=== PATIENT | male | born 1950 | race Caucasian/White ===

== ENCOUNTER → 2020-09-03 14:48 | Outpatient (BNVA) | payer MEDICARE, MEDICAID, SELFPAY | PROVIDERS: Family Provider Family Medicine; Visit Provider Dermatology | DX: D48.9 Neoplasm of uncertain behavior, unspecified (principal) | CPT/HCPCS: 88304 ==

== ENCOUNTER 2021-07-08 08:59 | Emergency (ER) | payer MEDICARE, OTHER, MEDICAID, SELFPAY ==
[2021-07-08 09:06] VITALS: BP 172/84; PULSE 67; RESP 18; TEMP 36.6; O2SAT 95; BMI 26.6
--- NOTE | 2021-07-08 09:11 | XRR_ITS ---
PROCEDURE INFORMATION: Exam: XR Left Tibia and Fibula Exam date and time: 07/08/2021 9:11 AM Age: 71 years old Clinical indication: Injury or trauma; Laceration; Lower leg; Left; Foreign body involvement not specified; Injury details: Knicked feliciano with a chainsaw TECHNIQUE: Imaging protocol: XR Left tibia and fibula. Views: 2 views. Total images: 2 COMPARISON: No relevant prior studies available. FINDINGS: Bones/joints: Small cortical fracture along the anterior cortex of the distal metadiaphyseal area of the left tibia. No additional fracture, subluxation, or dislocation detected. Soft tissues: Small soft tissue laceration anterior inferior feliciano. XR/XR tibia fibula LT 2V [id number] IMPRESSION: 1. Small soft tissue laceration anterior inferior feliciano. 2. Small cortical fracture along the anterior cortex of the distal metadiaphyseal area of the left tibia.
--- NOTE | 2021-07-08 09:18 | PC.PHAR ---
pt states he takes care of his own medications-pt verified medications and states he took his am meds at 05:30
--- NOTE | 2021-07-08 09:27 | W.ED.WOUNDLC ---
Documented by User: Ayo Resendiz DO 07/08/21 11:57 HPI - Wound/Laceration General: Chief Complaint: Wound/Laceration Stated Complaint: cut on leg Time Seen by Provider: 07/08/21 09:02 History of Present Illness: HPI narrative: 71-year-old male presents emergency room after cutting himself with a chainsaw. Left distal anterior tibia was cut with a chainsaw through boot. No active bleeding is not sure of his last tetanus shot. He was able to walk he has difficulty with dorsiflexion of the foot. Onset (ago): minute(s) Extremity Location: Left: lower leg Place: home Patient tetanus UTD: No Context: accidental Associated symptoms: Reports inability to move; Denies chills, fever(s), foreign body sensation, nausea, numbness, pain, syncope or vomiting Treatments prior to arrival: bandage Review of Systems Const: Denies: fever(s) or chills ENMT: Denies: throat pain, ear or mastoid pain, nasal discharge or nasal congestion Card: Denies: syncope Resp: Denies: dyspnea, productive cough or non-productive cough GI: Denies: nausea or vomiting : Denies: flank pain, dysuria, urinary frequency or urinary urgency Skin/Breast: Denies: rash or pruritus PFSH ED PFSH: Medical History History of nonmelanoma skin cancer Hyperlipidemia Hypertension Surgical History History of appendectomy History of back surgery Social History Smoking and tobacco status: current every day smoker cigarettes Packs smoked per day: 1 Years cigarettes smoked: 60 Quit status (tobacco): not considering quitting Second hand smoke exposure: Yes Smoking risk assessment/counseling performed?: No Alcohol intake: current Alcohol intake frequency: holidays/special occasions only Desire information about alcohol rehabilitation?: No Counseling given: No Physical Exam Const: COMMON NORMALS: no acute distress GENERAL APPEARANCE: cooperative and comfortable ORIENTATION/CONSCIOUSNESS: Yes awake, Yes oriented to person, Yes oriented to place and Yes oriented to time HENMT: COMMON NORMALS: normocephalic, atraumatic, hearing grossly normal bilaterally, external ears normal, EAC's normal, TM's normal bilaterally, Normal nasal mucous membranes and turbinates present, moist oral mucous membranes and oropharynx normal HEAD & SCALP: normocephalic and atraumatic NOSE: Normal nasal mucous membranes and turbinates present EXTERNAL EAR: Yes external ears normal EXTERNAL AUDITORY CANAL: EAC's normal TYMPANIC MEMBRANE: TM's normal bilaterally Eye: COMMON NORMALS: Equal, round and reactive pupils present, EOMs intact bilaterally, conjunctivae normal and no scleral icterus CONJUNCTIVA: Yes conjunctivae normal PUPIL: Yes Equal, round and reactive pupils present Neck/C-Spine: COMMON NORMALS: full ROM, no lymphadenopathy, supple and no JVD Lymph: LYMPHATIC: no lymphadenopathy noted and no lymphedema noted Resp: COMMON NORMALS: normal respiratory effort, No retractions, No use of accessory muscles and clear to auscultation bilaterally AUSCULTATION: clear to auscultation bilaterally Cardio: COMMON NORMALS: no JVD, regular rate, regular rhythm and No murmurs present (Cardio) RATE: regular rate RHYTHM: regular rhythm GI: COMMON NORMALS: Soft to palpation and No hepatosplenomegaly present AUSCULTATION: Yes normoactive bowel sounds PALPATION: Yes Soft to palpation, No Tenderness to palpation present (GI), No Guarding due to palpation present (GI) and Yes No hepatosplenomegaly present Extremity: COMMON NORMALS: normal to inspection, capillary refill normal, no clubbing, cyanosis or edema, no calf tenderness and no pedal edema Neuro: SENSORIUM/ORIENTATION: Yes oriented to person, Yes oriented to place and Yes oriented to time Skin: NARRATIVE SKIN EXAM: Full-thickness laceration on the anterior tibia distally. Tendons identifiable appears of the anterior tibialis and extensor hallux are lacerated Course Vital Signs: Vital signs: Vital Signs Temperature 97.8 F 07/08/21 09:06 Pulse Rate 63 07/08/21 11:32 Respiratory Rate 16 07/08/21 11:32 Blood Pressure 138/73 07/08/21 11:32 Pulse Oximetry 98 07/08/21 11:32 MDM - Wound/Laceration MDM Narrative: Medical decision making narrative: Discussed with Dr. Morel. Will discharge home screen for Covid set him up to see Dr. Morel tomorrow start on antibiotics he is given Ancef here and his tetanus is updated discharge home with pain medicine he is in a cam walker nonweightbearing with crutches. Discharge Plan Discharge Patient Disposition: Home Clinical Impression: Laceration, Laceration of right extensor hallucis longus tendon, Laceration of tibialis anterior tendon, Open tibial fracture Condition: Stable Prescriptions: New hydrocodone-acetaminophen 5-325 mg tablet 1 tab PO Q6H PRN (Reason: pain) Qty: 25 RF: 0 clindamycin HCl 300 mg capsule 300 mg PO QID 7 Days Qty: 28 RF: 0 No Action amlodipine 10 mg tablet 10 mg PO QAM RF: 0 lisinopril 10 mg tablet 10 mg PO BEDTIME RF: 0 lovastatin 10 mg tablet 10 mg PO BEDTIME RF: 0 escitalopram oxalate 10 mg tablet 10 mg PO QAM RF: 0 aspirin [Adult Aspirin Regimen] 81 mg tablet,delayed release (DR/EC) 81 mg PO QAM RF: 0 Discharge Orders: Discharge ED (Routine); Ordered 07/08/21 Ordered By: Ayo Resendiz Referrals: Quinten Hidalgo NP [Primary Care Provider] - Patient Instructions: Opioid Safety Activity Restrictions/Additional Instructions: Follow-up with orthopedics tomorrow Coding Level of Care Code ED Certified Driver Examiner for Chg Fwd Documented by User: SHAYLA Esquivel 07/08/21 10:50 HPI - Wound/Laceration General: Chief Complaint: Wound/Laceration Stated Complaint: cut on leg Time Seen by Provider: 07/08/21 09:02 [facility] ED PFSH: Medical History History of nonmelanoma skin cancer Hyperlipidemia Hypertension Surgical History History of appendectomy History of back surgery Social History Smoking and tobacco status: current every day smoker cigarettes Packs smoked per day: 1 Years cigarettes smoked: 60 Quit status (tobacco): not considering quitting Second hand smoke exposure: Yes Smoking risk assessment/counseling performed?: No Alcohol intake: current Alcohol intake frequency: holidays/special occasions only Desire information about alcohol rehabilitation?: No Counseling given: No Procedures Laceration Laceration 1: Site: lower extremity Side (If applicable): left Size (cm): 4.0 Description: irregular and other (tissue loss) Depth: involves tendon Local Anesthetic: lidocaine 1% Amount of anesthesia used (mL): 3.0 Pre-repair: wound explored and irrigated extensively Skin layer closed with: nylon Size (cm): 4-0 Number of sutures: 7 Technique: simple, interrupted Course Vital Signs: Vital signs: Vital Signs Temperature 97.8 F 07/08/21 09:06 Pulse Rate 63 07/08/21 11:32 Respiratory Rate 16 07/08/21 11:32 Blood Pressure 138/73 07/08/21 11:32 Pulse Oximetry 98 07/08/21 11:32 MDM - Wound/Laceration MDM Narrative: Medical decision making narrative: I was consulted by Dr. Resendiz to repair patient's left lower extremity laceration. This was completed as documented. Visual inspection of the wound appears to have complete lacerations of anterior tibialis and extensor hallucis tendons as well as bony tibial involvement. Copious amounts of irrigation completed by myself prior to laceration repair. Other than repair, I did not actively participate in patient's care. ES Discharge Plan Discharge Patient Disposition: Home Clinical Impression: Laceration, Laceration of right extensor hallucis longus tendon, Laceration of tibialis anterior tendon, Open tibial fracture Condition: Stable Prescriptions: New hydrocodone-acetaminophen 5-325 mg tablet 1 tab PO Q6H PRN (Reason: pain) Qty: 25 RF: 0 clindamycin HCl 300 mg capsule 300 mg PO QID 7 Days Qty: 28 RF: 0 No Action amlodipine 10 mg tablet 10 mg PO QAM RF: 0 lisinopril 10 mg tablet 10 mg PO BEDTIME RF: 0 lovastatin 10 mg tablet 10 mg PO BEDTIME RF: 0 escitalopram oxalate 10 mg tablet 10 mg PO QAM RF: 0 aspirin [Adult Aspirin Regimen] 81 mg tablet,delayed release (DR/EC) 81 mg PO QAM RF: 0 Discharge Orders: Discharge ED (Routine); Ordered 07/08/21 Ordered By: Ayo Resendiz Referrals: Quinten Hidalgo NP [Primary Care Provider] - Patient Instructions: Opioid Safety Activity Restrictions/Additional Instructions: Follow-up with orthopedics tomorrow Coding Level of Care Code ED Certified Driver Examiner for Shereen Nassar
[2021-07-08 09:39] VITALS: RESP 15
[2021-07-08] MEDS: ceFAZolin 1,000 MG in sodium chloride 0.9% (plus) 50 ML 100 MG IV (09:59)
[2021-07-08] MEDS: tetanus-dipt-pertussis 0.5 mL SDV IM (09:59)
[2021-07-08 11:32] VITALS: BP 138/73; PULSE 63; RESP 16; O2SAT 98
--- NOTE | 2021-07-08 11:35 | PC.NURSE ---
Dressing applied to left lower extrem, patient tolerates procedure without complaint.
[2021-07-08 12:08] VITALS: BP 143/75; PULSE 88; RESP 15; O2SAT 98
--- NOTE | 2021-07-08 12:13 | DCPLANNER ---
restaurant district manager had message to schedule a follow up appointment for patient with ortho. restaurant district manager called the ortho clinic, spoke with Gina, gave clinic patients information. restaurant district manager was told that patients information would be printed and reviewed. Clinic will call patient with appointment information.
[2021-07-08 12:18] VITALS: BP 143/75; PULSE 88; RESP 15; O2SAT 98
--- NOTE | 2021-07-09 14:09 | DCPLANNER ---
Patient has a follow up appointment scheduled for Thursday, June at 10:[address] Morel. Clinic will call patient with appointment information.
[2021-07-09 16:57] LABS: Coronavirus Test Green County Not Detected
--- NOTE | 2021-07-11 11:46 | DCPLANNER ---
Patient had a follow up appointment scheduled for 07.10.21 with ortho - patient did attend the appointment.
== END 2021-07-08 12:20 | disposition home or self-care (01) ==
PROVIDERS: Emergency Provider Family Medicine; PCP Nurse Practitioner Family
DX: S82.202B Unspecified fracture of shaft of left tibia, initial encounter for open fracture type I or II (principal); S86.822A Laceration of other muscle(s) and tendon(s) at lower leg level, left leg, initial encounter; S86.222A Laceration of muscle(s) and tendon(s) of anterior muscle group at lower leg level, left leg, initial encounter; Z79.82 Long term (current) use of aspirin; E78.5 Hyperlipidemia, unspecified; I10 Essential (primary) hypertension; F17.210 Nicotine dependence, cigarettes, uncomplicated; Z23 Encounter for immunization; W29.3XXA Contact with powered garden and outdoor hand tools and machinery, initial encounter; Z20.822 Contact with and (suspected) exposure to COVID-19
CPT/HCPCS: 12002; 73590; 87635; 90471; 90715; 96365; 97760; 99284; J0690; L4361

== ENCOUNTER 2021-07-15 10:45 | Day surgery (SDC) | payer MEDICARE, OTHER, MEDICAID, SELFPAY ==
[2021-07-12 11:17] VITALS: BMI 27.3
[2021-07-15] VITALS (10 sets, daily range): BP systolic 157–183; BP diastolic 76–109; PULSE 70–79; RESP 14–18; TEMP 36.2–36.8; O2SAT 96–100
[2021-07-15] MEDS: sodium chloride 0.9% 1,000 ML 30 ML IV (11:36)
--- NOTE | 2021-07-15 12:41 | ANES.PREANE2 ---
Pre-Anesthetic Assessment Pre-Anesthetic Assessment: Height/Weight: Height 1.75 m Weight 83.915 kg Temp Pulse Resp BP Pulse Ox 97.2 F L 70 18 157/76 98 07/15/21 11:37 07/15/21 11:37 07/15/21 11:37 07/15/21 11:37 07/15/21 11:37 Preop Diagnosis: Complex laceration left leg Proposed Procedure: Operation Date: 07/15/21 12:35 Proposed Procedures p exploration left leg wound, hallus longus tendon repair 53263, anterior tibialis tendon repair 50387 S86.229A S96.121A(Left) - Dev Morel MD s Tendon Repair Patella(Left) - Dev Morel MD Was Beta Krystin taken within 24 hours: N/A Was Clonidine taken within 24 hours: N/A Last intake: Intake Last Liquid Date 07/14/21 Last Liquid Time 21:00 Last Solid Date 07/14/21 Last Solid Time 21:00 Social: Social History: No alcohol and No tobacco Exam: Pre-Anes Outpt Exam: alert, oriented x 3 and regular rate & rhythm Airway: Submandibular: WNL Cervical ROM: WNL MP: 2 Dentition: Chipped Additional comments: poor dentition Pulmonary: Pulmonary: COPD CV/HEM: CV/HEM: HTN Metabolic: Metabolic: Hyperlipidemia Anesthetic Plan: ASA status: 3 Anesthesia: General Risk of > 500 ml blood loss (7ml/kg in children): No Meds/Allergies Current Medications: Current Medications Generic Name Dose Route Start Last Admin Trade Name Freq PRN Reason Stop Dose Admin Sodium Chloride 1,000 mls @ 30 ml s/hr 07/15/21 11:15 07/15/21 11:36 Sodium Chloride 0.9% IV 07/16/21 11:14 30 mls/hr .Q24H JUAN Administration PFSH Anesthesia PFSH: Medical History History of nonmelanoma skin cancer Hyperlipidemia Hypertension Surgical History History of appendectomy History of back surgery Social History Quit status (tobacco): not considering quitting Second hand smoke exposure: Yes Smoking risk assessment/counseling performed?: No Alcohol intake: current Alcohol intake frequency: holidays/special occasions only Desire information about alcohol rehabilitation?: No Counseling given: No Data Anesthesia Cardiac Studies: No Data to Display
--- NOTE | 2021-07-15 12:56 | W.PM.OPSUD ---
Surgery/Procedure H&P Update DATE OF PROCEDURE: July 15, 2021 DATE H&P PERFORMED: 07/10/21 PREOP DIAGNOSIS: Complex laceration left leg PLANNED PROCEDURE: Operation Date: 07/15/21 12:35 Proposed Procedures p exploration left leg wound, hallus longus tendon repair 60142, anterior tibialis tendon repair 31926 S86.229A S96.121A(Left) - Dev Morel MD s Tendon Repair Patella(Left) - Dev Morel MD
[2021-07-15] MEDS: clindamycin 900 MG/50 ML PREMIX 100 MG IV (13:28)
--- NOTE | 2021-07-15 14:35 | P.OP_ITS ---
Operative Report Date of procedure: July 15, 2021 Pre-op Diagnosis: Complex laceration left leg Post-op diagnosis: same Post-op Findings: Laceration left leg with complete transection tibialis anterior tendon Implants: Repair left tibialis anterior tendon and wound closure Pathology: none sent Surgeon: Dev Morel Anesthesia: General Estimated blood loss (mL): 10 Tourniquet time (min): 24 Complications: None Findings: The patient had a transverse laceration approximately 4 cm above the level of the ankle with complete disruption of the tibialis anterior tendon. The extensor houses longus tendon was intact Condition: stable Disposition: PACU Brief History: Mr. Huertas sustained a laceration to his left anterior distal leg with a chainsaw. The emergency room noted transection of the tibialis anterior tendon and inability to dorsiflex the foot. The wound was closed with a decision for exploration once a soft tissue envelope stabilized Procedure: The patient was taken the operating room and given 900 mg of clindamycin. He is positioned in the supine position with a tourniquet on the left thigh. The tourniquet was inflated to 350 mmHg. Initially sutures were removed from the 4 cm long transverse incision. The decision was extended proximally from the lateral aspect of the incision and distally from the medial aspect of the incision approximately 3 cm in each direction. This brought us down to the tibialis anterior tendon and the torn stump was identified distally. Damage to the proximal tibialis anterior tendon was extensive with muscular damage over a distance of approximately 2 cm however some reasonable tended could be found medially and deep. Decision was made to incorporate the intact extensor houses longus tendon and the repair to provide better tissue to aid healing. A Ultrabraid suture was passed in a locking Krak?w fashion across the distal tendon stump. A second suture was passed across the remaining proximal tendon incorporating the extensor houses longus tendon into the repair. The Ultratape tendons were secured to each other drawing the distal tendon stump up to the remnants of the remaining tendon and extensor houses longus tendon. The repair was then reinforced with 0 Ethibond. The wound was irrigated with antibiotic solution. The apices of the see incision were closed with 1 Prolene and the remainder the incision closed with vertical suture of 3-0 Prolene. Xero sheila gauze, 4 x 4's, web roll and Michael wrap and a postop boot were applied. The patient was extubated and taken recovery room in stable condition
[2021-07-15] MEDS: fentaNYL 50 mcg/mL INJ 2mL IVP ×2 (14:41→14:46)
--- NOTE | 2021-07-15 15:38 | ANE.PACU2 ---
Inpatient post-anesthesia follow up: Airway intact: Yes Vital signs: Temperature 97.3 F Pulse Rate 78 Respiratory Rate 18 Blood Pressure 177/92 Pulse Oximetry 98 Oxygen Delivery Me thod Room Air Oxygen Flow Rate Fraction of Inspir ed Oxygen Hydration adequate: Yes Pain level: 4 Mental status: Baseline
== END 2021-07-15 16:04 | disposition home or self-care (01) ==
PROVIDERS: PCP Nurse Practitioner Family; Visit Provider Orthopaedic Surgery
PROC: (CPT 27658; principal; 2021-07-15 12:25)
PROC: (CPT 27380; 2021-07-15 12:25)
DX: S86.822A Laceration of other muscle(s) and tendon(s) at lower leg level, left leg, initial encounter (principal); W29.3XXA Contact with powered garden and outdoor hand tools and machinery, initial encounter; J44.9 Chronic obstructive pulmonary disease, unspecified; I10 Essential (primary) hypertension; E78.5 Hyperlipidemia, unspecified; Z79.82 Long term (current) use of aspirin
CPT/HCPCS: 27658; J1580; J2704; J3010; J3490; J7030

== ENCOUNTER 2021-09-24 09:39 | Outpatient (CLI) | payer MEDICARE, OTHER, MEDICAID, SELFPAY | END 2021-09-24 09:40 | disposition home or self-care (01) | LOC: WOUND 09:40 | PROVIDERS: PCP Nurse Practitioner Family; Visit Provider Thoracic Surgery (Cardiothoracic Vascular Surgery) | DX: L97.821 Non-pressure chronic ulcer of other part of left lower leg limited to breakdown of skin (principal); F17.210 Nicotine dependence, cigarettes, uncomplicated | CPT/HCPCS: 11042; G0463 ==

== ENCOUNTER 2021-10-01 09:31 | Outpatient (CLI) | payer MEDICARE, OTHER, MEDICAID, SELFPAY | END 2021-10-01 09:32 | disposition home or self-care (01) | LOC: WOUND 09:32 | PROVIDERS: PCP Nurse Practitioner Family; Visit Provider Nurse Practitioner Family | DX: L97.821 Non-pressure chronic ulcer of other part of left lower leg limited to breakdown of skin (principal); F17.210 Nicotine dependence, cigarettes, uncomplicated | CPT/HCPCS: 11043 ==

== ENCOUNTER 2021-10-08 09:39 | Outpatient (CLI) | payer MEDICARE, OTHER, MEDICAID, SELFPAY | END 2021-10-08 09:40 | disposition home or self-care (01) | LOC: WOUND 09:41 | PROVIDERS: PCP Nurse Practitioner Family; Visit Provider Emergency Medicine | DX: S81.822A Laceration with foreign body, left lower leg, initial encounter (principal); W29.3XXA Contact with powered garden and outdoor hand tools and machinery, initial encounter; F17.210 Nicotine dependence, cigarettes, uncomplicated; I10 Essential (primary) hypertension | CPT/HCPCS: 11042 ==

== ENCOUNTER 2021-10-15 09:42 | Outpatient (CLI) | payer MEDICARE, OTHER, MEDICAID, SELFPAY | END 2021-10-15 09:43 | disposition home or self-care (01) | LOC: WOUND 09:45 | PROVIDERS: PCP Nurse Practitioner Family; Visit Provider Nurse Practitioner Family | DX: S81.822A Laceration with foreign body, left lower leg, initial encounter (principal); W29.3XXA Contact with powered garden and outdoor hand tools and machinery, initial encounter; F17.210 Nicotine dependence, cigarettes, uncomplicated; I10 Essential (primary) hypertension | CPT/HCPCS: 11042 ==

== ENCOUNTER 2021-10-22 08:44 | Outpatient (CLI) | payer MEDICARE, OTHER, MEDICAID, SELFPAY | END 2021-10-22 08:45 | disposition home or self-care (01) | LOC: WOUND 08:45 | PROVIDERS: PCP Nurse Practitioner Family; Visit Provider Nurse Practitioner Family | DX: T81.89XA Other complications of procedures, not elsewhere classified, initial encounter (principal); Y83.8 Other surgical procedures as the cause of abnormal reaction of the patient, or of later complication, without mention of misadventure at the time of the procedure; F17.210 Nicotine dependence, cigarettes, uncomplicated; I10 Essential (primary) hypertension | CPT/HCPCS: 11042 ==

== ENCOUNTER 2021-10-24 13:19 | Outpatient (RCR) | payer MEDICARE, OTHER, MEDICAID, SELFPAY | END 2021-11-22 23:59 | disposition home or self-care (01) | LOC: SPT 13:19 | PROVIDERS: PCP Nurse Practitioner Family; Referring Provider Nurse Practitioner Family; Visit Provider Nurse Practitioner Family | DX: L97.822 Non-pressure chronic ulcer of other part of left lower leg with fat layer exposed (principal) | CPT/HCPCS: 97140; 97161 ==

== ENCOUNTER 2021-10-29 08:06 | Outpatient (CLI) | payer MEDICARE, OTHER, MEDICAID, SELFPAY | END 2021-10-29 08:07 | disposition home or self-care (01) | LOC: WOUND 08:09 | PROVIDERS: PCP Nurse Practitioner Family; Visit Provider Thoracic Surgery (Cardiothoracic Vascular Surgery) | DX: S81.822A Laceration with foreign body, left lower leg, initial encounter (principal); W29.3XXA Contact with powered garden and outdoor hand tools and machinery, initial encounter; F17.210 Nicotine dependence, cigarettes, uncomplicated; I10 Essential (primary) hypertension | CPT/HCPCS: 11042 ==

== ENCOUNTER 2021-11-05 08:06 | Outpatient (CLI) | payer MEDICARE, OTHER, MEDICAID, SELFPAY | END 2021-11-05 08:07 | disposition home or self-care (01) | LOC: WOUND 08:09 | PROVIDERS: PCP Nurse Practitioner Family; Visit Provider Thoracic Surgery (Cardiothoracic Vascular Surgery) | DX: I96 Gangrene, not elsewhere classified (principal); S81.822A Laceration with foreign body, left lower leg, initial encounter; W29.3XXA Contact with powered garden and outdoor hand tools and machinery, initial encounter; F17.210 Nicotine dependence, cigarettes, uncomplicated; I10 Essential (primary) hypertension | CPT/HCPCS: 11043 ==

== ENCOUNTER 2021-11-06 09:01 | Outpatient (CLI) | payer MEDICARE, OTHER, SELFPAY ==
--- NOTE | 2021-11-06 09:12 | USCV_ITS ---
Justice Huertas Age: 71 Gender: M : 1950 Exam Date: 11/06/2021 10:14 Ordering Phys: Oskar Gerardo MD (Andy) ([email or web address]) Technologist: Exam Location: [facility] [place] Indication: PAD ULCER LT FOOT Risk Factors: Smoker Previous Vascular Surgery: RIGHT LEFT BP: 125.0 / 69.00 BP: 123.0/ 69.00 0 0 Waveform Velocity (cm/s) Velocity (cm/s) Waveform Monophasic 84.2 Iliac Prox 83.0 Monophasic Monophasic Iliac Mid Monophasic 101.3 83.6 Monophasic 104.1 Iliac Distal 74.2 Monophasic Monophasic 91.3 CHIP UNLOADER 66.8 Monophasic Monophasic 77.0 SFA Prox 57.4 Monophasic Monophasic 81.3 SFA Mid 72.1 Monophasic Monophasic 69.9 SFA Dist 88.8 Monophasic Monophasic 52.8 POP 24.1 Monophasic Monophasic 11.3 MARINE DRILLER 14.0 Monophasic Monophasic 14.0 DPA 16.0 Monophasic 0.6 DARRIUS 0.8 FINDINGS Normal resting DARRIUS of 0.6 in the right and 0.8 on the left side Monophasic and continuous Doppler waveforms on the right side Monophasic waveforms in the left side CONCLUSIONS Normal resting DARRIUS and Doppler features suggestive of moderate peripheral artery disease in the right side Possible occlusion of the proximal common iliac artery with collateral filling of the iliac, femoral, popliteal and infrapopliteal vessels Abnormal resting DARRIUS of 0.8 on the left side. Minimally diminished resting DARRIUS(0.8) on the left side suggesting mild peripheral artery disease. Dr Jovan Domingo MD [facility] (Electronically Signed) Final Date: 06 November 2021 16:21 S
== END 2021-11-06 09:02 | disposition home or self-care (01) ==
LOC: RAD 09:05
PROVIDERS: PCP Nurse Practitioner Family; Visit Provider Thoracic Surgery (Cardiothoracic Vascular Surgery)
DX: L97.822 Non-pressure chronic ulcer of other part of left lower leg with fat layer exposed (principal); I73.9 Peripheral vascular disease, unspecified
CPT/HCPCS: 93925

== ENCOUNTER 2021-11-12 08:06 | Outpatient (CLI) | payer MEDICARE, OTHER, SELFPAY | END 2021-11-12 08:07 | disposition home or self-care (01) | LOC: WOUND 08:06 | PROVIDERS: PCP Nurse Practitioner Family; Visit Provider Nurse Practitioner Family | DX: S81.822A Laceration with foreign body, left lower leg, initial encounter (principal); W29.3XXA Contact with powered garden and outdoor hand tools and machinery, initial encounter; F17.210 Nicotine dependence, cigarettes, uncomplicated; I10 Essential (primary) hypertension | CPT/HCPCS: 11042 ==

== ENCOUNTER 2021-11-19 07:52 | Outpatient (CLI) | payer MEDICARE, OTHER, SELFPAY | END 2021-11-19 07:53 | disposition home or self-care (01) | LOC: WOUND 07:53 | PROVIDERS: PCP Nurse Practitioner Family; Visit Provider Nurse Practitioner Family | DX: S81.822A Laceration with foreign body, left lower leg, initial encounter (principal); W29.3XXA Contact with powered garden and outdoor hand tools and machinery, initial encounter; F17.210 Nicotine dependence, cigarettes, uncomplicated | CPT/HCPCS: 11042 ==

== ENCOUNTER 2021-11-25 08:36 | Outpatient (CLI) | payer MEDICARE, SELFPAY | END 2021-11-25 08:37 | disposition home or self-care (01) | PROVIDERS: PCP Nurse Practitioner Family; Visit Provider Thoracic Surgery (Cardiothoracic Vascular Surgery) | DX: I96 Gangrene, not elsewhere classified (principal); S81.822A Laceration with foreign body, left lower leg, initial encounter; W29.3XXA Contact with powered garden and outdoor hand tools and machinery, initial encounter; F17.210 Nicotine dependence, cigarettes, uncomplicated | CPT/HCPCS: 11042; A6021 ==

== ENCOUNTER 2021-12-02 08:38 | Outpatient (CLI) | payer MEDICARE, SELFPAY | END 2021-12-02 08:39 | disposition home or self-care (01) | LOC: WOUND 08:39 | PROVIDERS: PCP Nurse Practitioner Family; Visit Provider Thoracic Surgery (Cardiothoracic Vascular Surgery) | DX: S81.822A Laceration with foreign body, left lower leg, initial encounter (principal); W29.3XXA Contact with powered garden and outdoor hand tools and machinery, initial encounter; F17.210 Nicotine dependence, cigarettes, uncomplicated; I10 Essential (primary) hypertension | CPT/HCPCS: 97597 ==

== ENCOUNTER 2021-12-09 08:37 | Outpatient (CLI) | payer MEDICARE, SELFPAY | END 2021-12-09 08:38 | disposition home or self-care (01) | LOC: WOUND 08:38 | PROVIDERS: PCP Nurse Practitioner Family; Visit Provider Nurse Practitioner Family | DX: S81.822A Laceration with foreign body, left lower leg, initial encounter (principal); W29.3XXA Contact with powered garden and outdoor hand tools and machinery, initial encounter; F17.210 Nicotine dependence, cigarettes, uncomplicated; I10 Essential (primary) hypertension | CPT/HCPCS: 11042; A6212 ==

== ENCOUNTER 2021-12-16 08:42 | Outpatient (CLI) | payer MEDICARE, SELFPAY | END 2021-12-16 08:43 | disposition home or self-care (01) | LOC: WOUND 08:42 | PROVIDERS: PCP Nurse Practitioner Family; Visit Provider Thoracic Surgery (Cardiothoracic Vascular Surgery) | DX: S81.822A Laceration with foreign body, left lower leg, initial encounter (principal); W29.3XXA Contact with powered garden and outdoor hand tools and machinery, initial encounter; F17.210 Nicotine dependence, cigarettes, uncomplicated; I10 Essential (primary) hypertension | CPT/HCPCS: 99212 ==

== ENCOUNTER 2021-12-23 08:38 | Outpatient (CLI) | payer MEDICARE, SELFPAY | END 2021-12-23 08:39 | disposition home or self-care (01) | LOC: WOUND 08:40 | PROVIDERS: PCP Nurse Practitioner Family; Visit Provider Thoracic Surgery (Cardiothoracic Vascular Surgery) | DX: T81.31XA Disruption of external operation (surgical) wound, not elsewhere classified, initial encounter (principal); Y83.8 Other surgical procedures as the cause of abnormal reaction of the patient, or of later complication, without mention of misadventure at the time of the procedure; F17.210 Nicotine dependence, cigarettes, uncomplicated; I10 Essential (primary) hypertension | CPT/HCPCS: 97597; A6212 ==

== ENCOUNTER 2021-12-30 09:17 | Outpatient (CLI) | payer MEDICARE, SELFPAY | END 2021-12-30 09:18 | disposition home or self-care (01) | LOC: WOUND 09:18 | PROVIDERS: PCP Nurse Practitioner Family; Visit Provider Thoracic Surgery (Cardiothoracic Vascular Surgery) | DX: Z09 Encounter for follow-up examination after completed treatment for conditions other than malignant neoplasm (principal); F17.210 Nicotine dependence, cigarettes, uncomplicated | CPT/HCPCS: 99212 ==

== ENCOUNTER 2022-01-06 08:33 | Outpatient (CLI) | payer MEDICARE, SELFPAY | END 2022-01-06 08:34 | disposition home or self-care (01) | LOC: WOUND 08:35 | PROVIDERS: PCP Nurse Practitioner Family; Visit Provider Thoracic Surgery (Cardiothoracic Vascular Surgery) | DX: S80.812A Abrasion, left lower leg, initial encounter (principal); X58.XXXA Exposure to other specified factors, initial encounter; F17.210 Nicotine dependence, cigarettes, uncomplicated | CPT/HCPCS: 97597 ==

== ENCOUNTER 2022-01-13 08:34 | Outpatient (CLI) | payer MEDICARE, SELFPAY | END 2022-01-13 08:35 | disposition home or self-care (01) | LOC: WOUND 08:36 | PROVIDERS: PCP Nurse Practitioner Family; Visit Provider Thoracic Surgery (Cardiothoracic Vascular Surgery) | DX: T81.89XA Other complications of procedures, not elsewhere classified, initial encounter (principal); Y83.8 Other surgical procedures as the cause of abnormal reaction of the patient, or of later complication, without mention of misadventure at the time of the procedure; F17.210 Nicotine dependence, cigarettes, uncomplicated | CPT/HCPCS: 97597 ==

== ENCOUNTER 2022-01-20 08:32 | Outpatient (CLI) | payer MEDICARE, SELFPAY | END 2022-01-20 08:33 | disposition home or self-care (01) | LOC: WOUND 08:34 | PROVIDERS: PCP Nurse Practitioner Family; Visit Provider Thoracic Surgery (Cardiothoracic Vascular Surgery) | DX: L97.822 Non-pressure chronic ulcer of other part of left lower leg with fat layer exposed (principal); T81.31XS Disruption of external operation (surgical) wound, not elsewhere classified, sequela | CPT/HCPCS: 99212 ==

== ENCOUNTER 2022-01-27 08:52 | Outpatient (CLI) | payer MEDICARE, SELFPAY | END 2022-01-27 08:53 | disposition home or self-care (01) | LOC: WOUND 08:53 | PROVIDERS: PCP Nurse Practitioner Family; Visit Provider Thoracic Surgery (Cardiothoracic Vascular Surgery) | DX: Z09 Encounter for follow-up examination after completed treatment for conditions other than malignant neoplasm (principal); L97.829 Non-pressure chronic ulcer of other part of left lower leg with unspecified severity; F17.210 Nicotine dependence, cigarettes, uncomplicated | CPT/HCPCS: 99212 ==

== ENCOUNTER → 2022-03-24 13:54 | Outpatient (BNVA) | payer MEDICARE, SELFPAY | PROVIDERS: PCP Nurse Practitioner Family; Visit Provider Internal Medicine | DX: I73.9 Peripheral vascular disease, unspecified (principal); L97.929 Non-pressure chronic ulcer of unspecified part of left lower leg with unspecified severity; I10 Essential (primary) hypertension; E78.5 Hyperlipidemia, unspecified; F17.210 Nicotine dependence, cigarettes, uncomplicated | CPT/HCPCS: 99214; 99215 ==

== ENCOUNTER 2022-04-16 05:53 | Outpatient (CLI) | payer MEDICARE, SELFPAY ==
[2022-04-14 10:47] LABS: Basophils # 0.1 10^3/uL (0.0-0.1); Basophils % 0.9 %; Eosinophils # 0.1 10^3/uL (0.0-0.8); Eosinophils % 1.9 %; Hematocrit 44.9 % (42.0-52.0); Hemoglobin 14.3 g/dL (11.7-16.6); Lymphocytes # 1.6 10^3/uL (0.8-4.8); Lymphocytes % 28.5 %; Mean Corpuscular HGB Conc 31.8 g/dL (30.0-36.0); Mean Corpuscular Hemoglobin 28.5 pg (28.0-34.0); Mean Corpuscular Volume 89.4 fl (80-94); Monocytes # 0.6 10^3/uL (0.2-0.9); Neutrophils # 3.32 10^3/uL (1.8-7.7); Neutrophils % 58.5 %; Nucleated Red Blood Cells % 0 %; Platelet Count 292 10^3/cmm (130-400); Red Blood Count 5.02 10^6/uL (4.1-5.3); Red Cell Distribution Width 13.7 % (12.1-15.1); White Blood Count 5.7 10^3/uL (4.0-10.0)
[2022-04-14 11:02] LABS: INR 0.99 (0.83-1.21); Prothrombin Time (Patient) 13.4 Seconds (12.0-15.1)
[2022-04-14 11:11] LABS: Anion Gap 13.2 (5-19); Blood Urea Nitrogen 7 mg/dL (8-23); Calcium 9.6 mg/dL (8.5-10.5); Carbon Dioxide 27 mmol/L (22-29); Chloride 100 mmol/L (98-107); Glucose 93 mg/dL (65-115); Osmolality Calculated 280 mOsm/kg (285-295); Potassium 4.2 mmol/L (3.5-5.1); Sodium 136 mmol/L (136-145)
--- NOTE | 2022-04-16 06:00 | XACV_ITS ---
Ht: 175 cm Wt: 85 kg BSA: 2.05 m2 Any Known Allergies: Other Gender: Male : 1950 Exam Type: Invasive Peripheral Vascular Procedure(s): Procedure Description: Peripheral Cath Diagnostic Procedure Procedure Description: Abdominal aortic angiography Procedure Description: Lower extremities' angiography Exam Priority: Routine Abdominal Diagnostic Findings Distal aorta: Patent. Lower Extremity Diagnostic Findings INDICATION: 71-year-old man with past medical history of hypertension and smoking history who was referred for right lower extremity severe lifestyle limiting claudication symptoms. He cannot ambulate much because of the discomfort. He also has a nonhealing wound on the left anterior feliciano. He had DARRIUS done recently that showed an DARRIUS of 0.6 on the right side and 0.8 on the left side. On the right side there was possible occlusion of proximal common iliac with collateral filling of iliac, femoral, popliteal and popliteal arteries. We attempted medical therapy however his symptoms kept getting worse. patient is a current smoker. We could not obtain access in the left common femoral artery disease as wire could not be advanced in the external iliac artery. We then proceeded with obtaining access in the right radial artery. Right common iliac artery: Ostially occluded Right external iliac artery: Occluded Right common femoral artery: Significantly diseased and reconstitutes via collaterals Right profunda: Patent Right SFA: Mid vessel has diffuse disease Right popliteal artery: Severe subtotal occlusion. Below the knee vessels are filled with both comanche vessel and collateral supply. Below the knee diffuse disease with two-vessel runoff.. Left common iliac artery: Patent Left external iliac artery: Subtotally occluded Left common femoral artery: Calcified moderate stenosis Left profunda artery: Patent Left SFA artery: Severe mid vessel stenosis. Left popliteal artery: Patent Below the knee patient has three-vessel runoff with diffuse disease. Conclusions Severe bilateral peripheral artery disease. Recommendations Aggressive risk factor control. Will refer to vascular surgery to assess for further revascularization options. Hemodynamic Data Phase:Rest AO : 93.0 / 38.0 ( 55.0 ) @ 8:45:00 AM Access Site Site: Right Radial artery Sheath Size: 6 Fr Hemost... Method: TR Band Hemost... Success: Successful Procedure Details Findings Procedure Consent Obtained. Pre-Procedure Time Out. Identified patient by full name and date of as verbalized by the patient/guarantor. Does the consent match the physician's order: Yes. Accurate & Complete Informed Consent: Yes. Inpatient/Outpatient History & Physical on Chart: Yes. If H&P is completed, is and addenduem needed: No; If yes, is the addendum complete: N/A. Visualize and Verify Site with Patient/Guarantor: N/A. Relevant Radiology Images available: Yes. The risks, benefits, and alternatives of sedation and/or procedure were discussed by physician. The patient agrees to continue. Procedure started. Correct patient, site and procedure confirmed by cath team. Current diagnosis: PVD. PERRLA. Strong, equal hand media associate bilaterally. Lungs clear x 5 lobes. IV Site on Arrival: 20 gauge in the right anticubital. IV Fluids: 0.9% NaCl at KVO. 0 mL infused prior to laboratory cureman. Pre Procedural Pulses: bilateral dorsalis pedis was Doppled. Pre Procedural Pulses: bilateral posterior tibial was Doppled. Oxygen started at 2liters/min via nasal canula. right groin was prepped with chloroprep then draped in the usual sterile fashion. right radial was prepped with chloroprep then draped in the usual sterile fashion. Physician notified. Baseline sample Acquired. HR: 65 BPM. Physician arrived. Patient's family is in CPRU room #3. Dr. Awad will update at the completion of the procedure. Physician scrubbed in. Immediate Pre-Procedure Time Out. Correct Patient: Yes; Correct Procedure: Yes; Correct Site: Yes; Correct Patient Position: Yes; Correct Supplies: Yes; Dried Flammable Prep: Yes; Blood Products Available: N/A;. Lidocaine 1% infiltrated to the left groin. Arterial access obtained with micropuncture set,unable to thread wire. Everything out. Manual pressure being held by RT Ludy(R). Lidocaine 1% infiltrated to the right radial. Arterial access obtained. A 6 ukrainian 125 cm Straight Pig catheter in over glidewire. Glidewire out. Aortogram performed in AP @ 10 mL/second for a total of 30 mL. Pigtail postioned above the bifurcation of the iliacs. Runoff performed @ 10 mL/sec for a total of 30 mL of the left leg. Pigtail postioned above the bifurcation of the iliacs. Runoff performed @ 10 mL/sec for a total of 30 mL below the left knee. Pigtail postioned above the bifurcation of the iliacs. Runoff performed @ 10 mL/sec for a total of 30 mL of the right leg. Pigtail postioned above the bifurcation of the iliacs. Aortagram performed @ 10 mL/sec for a total of 30 mL of the right leg. Catheter removed over the glide wire. Dr. Awad scrubbed out. A TR Band was successful obtaining hemostatsis at the Right Radial artery insertion site. TR band placed. Hemostasis obtained. Post Procedure: Pulses reassessed and unchanged. PERRLA. Strong, equal hand media associate bilaterally. No VTE prophylaxis required. Medication's Wasted: Heparin = 1000 units. Medication's Wasted: Nitro = 49.8 mg. Total IV fluids: 43 mL. Complications: none. Post-op diagnosis: Severe bilateral PVD. Estimated blood loss: 5mL-10mL. Responsiveness - Normal response to verbal stimuli; alert and oriented, PERRLA. Airway - Unaffected, no intervention required; spontaneous ventilation. Nausea/Vomiting: No. Circulation: W/N/L, pulses unchanged. Patient transferred by bed to ICU. Procedure completed. Vital chart was stopped. Procedure Medications Start: 7:23 AM Stop: 7:23 AM Medication: Versed Amount: 1 mg Route: I.V. Start: 7:23 AM Stop: 7:23 AM Medication: Fentanyl Amount: 50 mcg Route: I.V. Start: 7:36 AM Stop: 7:36 AM Medication: Versed Amount: 1 mg Route: I.V. Start: 7:36 AM Stop: 7:36 AM Medication: Fentanyl Amount: 25 mcg Route: I.V. Start: 7:39 AM Stop: 7:39 AM Medication: Nitrogylcerin Amount: 200 mcg Route: I.A. Start: 7:43 AM Stop: 7:43 AM Medication: Heparin Amount: 5000 units Route: I.V. I, the attending physician, have reviewed and verified all procedure medications. Yes, all medications given per verbal order History/Risk Factors Hypertension: Yes Dyslipidemia: Yes Peripheral Arterial Disease (PAD): Yes Obesity: No Renal Disease: No Tobacco Use: Current/Recent(w/in 1 year) Prior Interventions PCI: No CABG: No Valve Surgery: No Report Signatures Finalized by Sunny Awad MD on 04/26/2022 01:06 AM
[2022-04-16 06:12] VITALS: BP 151/79; PULSE 71; RESP 18; TEMP 36.9; O2SAT 97; BMI 27.7
[2022-04-16] MEDS: diphenhydrAMINE 50 mg Capsule PO (06:20)
--- NOTE | 2022-04-16 07:14 | W.PM.OPSFHP ---
Same Day Surgery H&P Indication for Procedure/HPI DATE OF PROCEDURE: April 16, 2022 CHIEF COMPLAINT/INDICATIONFOR SURGICAL PROCEDURE: Severe lifestyle limiting claudication/ non healing wound PREOP DIAGNOSIS: Severe lifestyle limiting claudication/ non healing wound PLANNED PROCEDURE: Operation Date: 04/16/22 07:00 Proposed Procedures p Peripheral Diagnostic(Bilateral) - Sunny Awad M.D Possible percuataneous intervention 71-year-old man with past medical history of hypertension and smoking history who was referred for right lower extremity severe lifestyle limiting claudication symptoms. He cannot ambulate much because of the discomfort. He also has a nonhealing wound on the left anterior feliciano. He had DARRIUS done recently that showed an DARRIUS of 0.6 on the right side and 0.8 on the left side.? On the right side there was possible occlusion of proximal common iliac with collateral filling of iliac, femoral, popliteal and popliteal arteries. We attempted medical therapy however his symptoms kept getting worse. patient is a current smoker. Medications/Allergies* Home Medications Medication Instructions Recorded Confirmed Type amlodipine 10 mg tablet 10 mg PO QAM 09/03/20 04/15/22 History aspirin 81 mg tablet,delayed 81 mg PO QAM 09/03/20 04/15/22 History release (Adult Aspirin Regimen) escitalopram oxalate 10 mg tablet 10 mg PO QAM 09/03/20 04/15/22 History lisinopril 10 mg tablet 10 mg PO BEDTIME 09/03/20 04/15/22 History lovastatin 10 mg tablet 10 mg PO BEDTIME 09/03/20 04/15/22 History Allergies/Adverse Reactions Allergy/AdvReac Type Severity Reaction Status Date / Time Penicillins Allergy Mild Unknown Verified 04/15/22 09:08 hydrochlorothiazide Allergy Unknown Verified 04/15/22 09:08 [From Aldoril] methyldopa [From Aldoril] Allergy Unknown Verified 04/15/22 09:08 prazosin [From Minipress] Allergy Unknown Verified 04/15/22 09:08 Pertinent History/Comorbid Conditions* Medical History (Updated 01/14/22 @ 15:08 by Sunny Awad M.D) History of nonmelanoma skin cancer Hyperlipidemia Hypertension Surgical History (Updated 10/24/20 @ 11:09 by Neelam Welch DO) History of appendectomy History of back surgery Social History Smoking and tobacco status: current every day smoker cigarettes Packs smoked per day: 1 Years cigarettes smoked: 60 Quit status (tobacco): not considering quitting Second hand smoke exposure: Yes Smoking risk assessment/counseling performed?: No Alcohol intake: current Alcohol intake frequency: holidays/special occasions only Alcohol type: beer and other Desire information about alcohol rehabilitation?: No Counseling given: No Pertinent Exam Findings alert, oriented x 3, clear to auscultation bilaterally and regular rate & rhythm Diminished lower extremity pulses Conscious Sedation Assessment PATIENT ASSESSED PRIOR TO SEDATION, WITH NO CHANGE NOTED: Yes AIRWAY EVAL/ANESTHESIA PLAN: normal airway, see other exam findings, ASA III, Monitored Anesthesia, Local Anesthesia, Risks, benefits & alternatives of sedation and/or procedure discussed and Patient agrees to continue as planned Recommendations Surgery/Procedure today (Peripheral angiogram with possible percutaneous intervention) Coding Level of Care Code Acute Fire Protection Specialist for Shereen Nassar
--- NOTE | 2022-04-16 09:04 | PC.NURSE ---
Patient transferred to ICU via bed by cath laboratory technician staff. Arrived at 0805. Vitals: 117/67, HR: 63, RR: 18, SPO2: 97%, temp: 97.6. Patient is alert to person, place, time and situation.
--- NOTE | 2022-04-16 09:37 | PC.CHAP ---
Pastoral Care Encounter/Spiritual Assessment Type of Contact [] Declined stretcher helper visit [] Patient/Family/Request visit [] Outpatient visit [] Follow-up visit [] Physician referral [] Code/Alert [x] Routine visit [] Staff referral [] Actively dying [x] Patient sleeping [] Family support [] [] Out of room [] Palliative care [] [] Receiving care in room [] Pre-surgical visit [] Trauma [] Long length of stay [x] ICU visit [] Other: Relational/Emotional Strength [] Patient feels connected with others/family/visitors/staff [] Distress [] Loneliness/isolation [] Abandonment Spirituality of Patient [] Person of Tessie [] Attends Faith of their Tessie [] Believes in Prayer [] Reads Bible or Religion materials [] There are Spiritual issues to be addressed Statement Distribution Clerk Interventions [x] Prayer [] Active listening [] Non-anxious presence [] Spiritual/emotional support [] Crisis/trauma care [] Spiritual counseling [] Bereavement support [] Provided bereavement packet [] Provided Bible/devotional materials [] Provided toy/stuffed animal, coloring book to patient or family member [] Provided Communion [] Anointing/[place] [] Salvation [x] Completed spiritual assessment [] Other: Impact on Illness or Injury [] Angry [] Fearful [] Anxious [] Often cries [] Exhaustion [] Unable to work [] Unable to attend denominational [] Unable to walk/stand [] Unable to read [] Unable to drive [] Unable to eat/drink [] Unable to sleep [] Unable to be with family [] Patient intubated [] Other: Summary Time spent with patient
[2022-04-16 13:11] VITALS: BP 144/78; PULSE 83; RESP 16; TEMP 36.6; O2SAT 96
--- NOTE | 2022-04-16 13:28 | PC.NURSE ---
Air slowly removed form TR band starting at 0900. Removed 2 mL and hour for the first 2 hours and no complications were noted. Nurse then started removing 2 mL od air every 1 minutes until TR band was off at 1130. Dressed site with debbie and transparent dressing to easily monitor bleeding should it occur.
--- NOTE | 2022-04-16 13:30 | PC.NURSE ---
Discharged patient at 1330. POst angiogram education provided. FOllow up appointment set with jian bernabe. IV removed. Patient signature form signed. Patient taken out via wheelchair. Discharged with spouse and son.
== END 2022-04-16 13:30 | disposition home or self-care (01) ==
LOC: CCL 05:54 → ICU 08:09
PROVIDERS: PCP Nurse Practitioner Family; Visit Provider Internal Medicine
DX: I73.9 Peripheral vascular disease, unspecified (principal); I10 Essential (primary) hypertension; Z87.891 Personal history of nicotine dependence; E78.5 Hyperlipidemia, unspecified; S81.801A Unspecified open wound, right lower leg, initial encounter; X58.XXXA Exposure to other specified factors, initial encounter; Z79.82 Long term (current) use of aspirin
CPT/HCPCS: 36415; 75625; 75716; 80048; 85025; 85610; 96360; 99152; 99153; C1769; C1887; C1894; G0378; J1644; J2250; J3010; J3490; J7030; Q0163; Q9967

== ENCOUNTER → 2022-04-22 13:29 | Outpatient (BNVA) | payer MEDICARE, SELFPAY | PROVIDERS: PCP Nurse Practitioner Family; Visit Provider Nurse Practitioner Family | DX: I73.9 Peripheral vascular disease, unspecified (principal); F17.210 Nicotine dependence, cigarettes, uncomplicated | CPT/HCPCS: 80048; 99214 ==

== ENCOUNTER 2023-07-13 08:07 | Outpatient (CLI) | payer MEDICARE, SELFPAY ==
--- NOTE | 2023-07-13 08:18 | XR_ITS ---
WS: [id number] EXAMINATION: XR tibia fibula LT 2V [id number] REASON FOR EXAM: Other injury of unspecified bayd region COMPARISON: 07/08/2023 control see ORDER DATE: 07/13/2023 8:19 AM FINDINGS: Bones/joints: Small cortical fracture along the anterior cortex of the distal metadiaphyseal area of the left tibia as underwent repair with new cortical bone mitigating a shallow cortical erosion previously seen. No additional fracture, subluxation, or dislocation detected. Soft tissues: Small soft tissue scar anterior inferior feliciano. IMPRESSION: 1. Small soft tissue scar anterior inferior feliciano. 2. Small cortical fracture along the anterior cortex of the distal metadiaphyseal area of the left tibia has underwent osseous repair.
== END 2023-07-13 08:08 | disposition home or self-care (01) ==
PROVIDERS: PCP Nurse Practitioner Family; Visit Provider Nurse Practitioner Family
DX: S82.292D Other fracture of shaft of left tibia, subsequent encounter for closed fracture with routine healing (principal); X58.XXXD Exposure to other specified factors, subsequent encounter
CPT/HCPCS: 73590

== ENCOUNTER → 2023-08-07 13:36 | Outpatient (BNVA) | payer MEDICARE, SELFPAY | PROVIDERS: PCP Nurse Practitioner Family; Visit Provider Nurse Practitioner Family | DX: I96 Gangrene, not elsewhere classified (principal); L97.822 Non-pressure chronic ulcer of other part of left lower leg with fat layer exposed | CPT/HCPCS: 11042; 99213 ==

== ENCOUNTER → 2023-08-14 09:57 | Outpatient (BNVA) | payer MEDICARE, SELFPAY | PROVIDERS: PCP Nurse Practitioner Family; Visit Provider Nurse Practitioner Family | DX: I96 Gangrene, not elsewhere classified (principal); L97.822 Non-pressure chronic ulcer of other part of left lower leg with fat layer exposed | CPT/HCPCS: 99212; A6212 ==

== ENCOUNTER 2025-03-13 20:22 | Emergency (ER) | payer MEDICARE, SELFPAY ==
[2025-03-13 20:32] VITALS: BP 151/72; PULSE 61; TEMP 36.5; O2SAT 100; BMI 26.6
--- NOTE | 2025-03-13 20:48 | ECG_ITS ---
[facility]: 2025-[facility]13 Pat Name: Justice Huertas Department: Room: Gender: Male Tamper Operator: : [id number] Requested By: Michael Quintana Order Number: [id number] Abdoul MD: Jovan Domingo M.D. Measurements Intervals [place] Rate: 61 P: 66 DC: 160 QRS: 48 QRSD: 118 T: -29 QT: 416 QTc: 419 Interpretive Statements SINUS RHYTHM PROBABLE INFERIOR MYOCARDIAL INFARCTION , OF INDETERMINATE AGE [35 ms Q WAVE IN II/aVF] INTERPRETATION BASED ON A DEFAULT AGE OF 40 YEARS Compared to ECG 08/16/2016 05:14:16 Myocardial infarct finding now present Electronically Signed On 03-14-2025 21:22:28 CDT by Jovan Domingo M.D. [email or web address] [id number]
--- NOTE | 2025-03-13 20:48 | CTR_ITS ---
PROCEDURE INFORMATION: Exam: CT Head Without Contrast Exam date and time: 03/13/2025 9:16 PM Age: 75 years old Clinical indication: Dizziness; Additional info: Dizzy TECHNIQUE: Imaging protocol: Computed tomography of the head without contrast. Radiation optimization: All CT scans at this facility use at least one of these dose optimization techniques: automated exposure control; mA and/or kV adjustment per patient size (includes targeted exams where dose is matched to clinical indication); or iterative reconstruction. COMPARISON: No relevant prior studies available. RADIATION DOSE METRICS: Total DLP (mGy-cm): 1227.28 FINDINGS: Brain: Normal. No hemorrhage. Unremarkable white matter. No mass effect. Cerebral ventricles: No ventriculomegaly. Paranasal sinuses: Visualized sinuses are unremarkable. No fluid levels. Mastoid air cells: Visualized mastoid air cells are well aerated. Bones: Unremarkable. No acute fracture. Soft tissues: Unremarkable. CT/CT head wo con* [id number] IMPRESSION: No acute intracranial abnormality.
--- NOTE | 2025-03-13 20:49 | W.ED.DIZZY ---
HPI - Dizziness General: Chief Complaint: Dizziness Stated Complaint: Fell Low BP Time Seen by Provider: 03/13/25 20:24 Source: patient Mode of arrival: ambulatory Limitations: no limitations History of Present Illness: HPI Narrative: 75-year-old male states that he went to the bathroom roughly 2 hours ago states that he had stood up from the bathroom states he started to feel lightheaded he got diaphoretic and nauseous and had a syncopal event. Patient states that family found him he was hypotensive at first and had some word finding difficulty but states he feels much improved currently blood pressures improved states that he feels like he is back to his baseline denies any headache denies any chest pain. Associated symptoms: Reports syncope; Denies chest pain, chills, headache(s), nausea or vomiting Related Data Home Medications ?Medication ?Instructions ?Recorded ?Confirmed amlodipine 10 mg tablet 10 mg PO QAM 09/03/20 04/22/22 aspirin 81 mg tablet,delayed 81 mg PO QAM 09/03/20 04/22/22 release (Adult Aspirin Regimen) escitalopram oxalate 10 mg tablet 10 mg PO QAM 09/03/20 04/22/22 lisinopril 10 mg tablet 10 mg PO BEDTIME 09/03/20 04/22/22 lovastatin 10 mg tablet 10 mg PO BEDTIME 09/03/20 04/22/22 Previous Rx's ?Medication ?Instructions ?Recorded cilostazol 50 mg tablet 50 mg PO BID #180 tabs 01/14/22 Allergies Allergy/AdvReac Type Severity Reaction Status Date / Time Penicillins Allergy Mild Unknown Verified 03/13/25 20:47 hydrochlorothiazide (From Allergy Unknown Verified 03/13/25 20:47 Aldoril) methyldopa (From Aldoril) Allergy Unknown Verified 03/13/25 20:47 prazosin (From Minipress) Allergy Unknown Verified 03/13/25 20:47 Review of Systems Const: Denies: fever(s), chills, body aches or change in appetite Eyes: Denies: blurry vision or eye discomfort ENMT: Denies: throat pain or dental pain Card: Reports: syncope; Denies: chest pain Resp: Denies: dyspnea GI: Denies: abdominal pain, nausea, vomiting or diarrhea : Denies: dysuria Musc: Denies: neck pain or back pain Skin/Breast: Denies: rash Neuro: Denies: headache(s) PFSH ED PFSH: Medical History History of nonmelanoma skin cancer Hyperlipidemia Hypertension Surgical History History of appendectomy History of back surgery Social History Smoking and tobacco/nicotine status: current every day tobacco/nicotine user cigarettes Packs smoked per day: 1 Years cigarettes smoked: 60 Quit status (tobacco/nicotine): not considering quitting Second hand smoke exposure: Yes Alcohol intake: current Alcohol intake frequency: holidays/special occasions only Alcohol type: beer and other Substance/Drug Use: never Physical Exam Const: COMMON NORMALS: no acute distress, patient oriented x3 and healthy appearing HENMT: COMMON NORMALS: normocephalic and atraumatic HEAD & SCALP: normocephalic and atraumatic Eye: COMMON NORMALS: Equal, round and reactive pupils present and EOMs intact bilaterally PUPIL: Yes Equal, round and reactive pupils present Neck/C-Spine: COMMON NORMALS: full ROM and supple Chest: COMMONS NORMALS: normal inspection of the chest Resp: COMMON NORMALS: normal respiratory effort, No retractions, No use of accessory muscles and clear to auscultation bilaterally AUSCULTATION: clear to auscultation bilaterally Cardio: COMMON NORMALS: regular rate, regular rhythm and No murmurs present (Cardio) RATE: regular rate RHYTHM: regular rhythm Extremity: COMMON NORMALS: normal to inspection and full ROM Neuro: COMMON NORMALS: patient oriented x3, moves all extremities and no focal motor deficits CRANIAL NERVES: Yes CN normal except as noted SPEECH: speech normal GAIT: Yes Normal gait present MOTOR EXAM: 5/5 motor strength present throughout Psych: COMMON NORMALS: mental status grossly normal, Normal thought process present and cooperative THOUGHT PROCESS: Normal thought process present Skin: COMMON NORMALS: no rashes or lesions noted and no wounds GENERAL SKIN EXAM: no rashes or lesions noted Course Vital Signs: Vital signs: Vital Signs Temperature 97.7 F 03/13/25 20:32 Pulse Rate 67 03/13/25 22:11 Respiratory Rate 16 03/13/25 21:59 Blood Pressure 154/71 03/13/25 22:11 Pulse Oximetry 98 03/13/25 21:59 Oxygen Delivery Me thod Room Air 03/13/25 21:59 MDM - Dizziness Medical Decision Making Patient presents here with a syncopal event likely a vagal episode he has been well-appearing here is ortho's are normal ambulated well imaging blood work are normal he stable for discharge follow-up PCP return if worsening. Medical Records I reviewed the patient's medical records. Lab Data I reviewed the patient's lab results. 03/13/25 21:00 03/13/25 21:[address] 03/13/25 20:48 IMPRESSION: No acute intracranial abnormality. Chest X-Ray 03/13/25 21:52 IMPRESSION: As above. Laboratory Results WBC 11.04 10^3/uL (3.29-11.43) 03/13/25 21:00 RBC 4.33 10^6/uL (3.85-5.65) 03/13/25 21:00 Hgb 12.00 g/dL (11.27-16.99) 03/13/25 21:00 Hct 37.1 % (37-53) 03/13/25 21:00 MCV 85.7 fl (82-101) 03/13/25 21:00 MCH 27.7 pg (27-33) 03/13/25 21:00 MCHC 32.3 g/dL (30-55) 03/13/25 21:00 RDW 16.0 % (12.1-15.1) H 03/13/25 21:00 Plt Count 305 10^3/cmm (157-399) 03/13/25 21:00 MPV 9.8 fL (7.4-10.4) 03/13/25 21:00 Neut % (Auto) 80.0 % 03/13/25 21:00 Lymph % (Auto) 9.3 % 03/13/25 21:00 [place] % (Auto) 8.8 % 03/13/25 21:00 Eos % (Auto) 1.1 % 03/13/25 21:00 Baso % (Auto) 0.5 % 03/13/25 21:00 Neut # (Auto) 8.84 10^3/uL (1.8-7.7) H 03/13/25 21:00 Lymph # (Auto) 1.0 10^3/uL (0.8-4.8) 03/13/25 21:00 [place] # (Auto) 1.0 10^3/uL (0.2-0.9) H 03/13/25 21:00 Eos # (Auto) 0.1 10^3/uL (0.0-0.8) 03/13/25 21:00 Baso # (Auto) 0.1 10^3/uL (0.0-0.1) 03/13/25 21:00 Nucleated RBC % (auto) 0 % 03/13/25 21:00 Nucleated RBCs # 0.0 /100WBC 03/13/25 21:00 Sodium 138 mmol/L (136-145) 03/13/25 21:00 Potassium 4.2 mmol/L (3.5-5.1) 03/13/25 21:00 Chloride 99 mmol/L (98-107) 03/13/25 21:00 Carbon Dioxide 26 mmol/L (22-29) 03/13/25 21:00 Anion Gap 17.2 (5-19) 03/13/25 21:00 BUN 11 mg/dL (8-23) 03/13/25 21:00 Creatinine 0.8 mg/dL (0.7-1.2) 03/13/25 21:00 GFR Calculation Not Reportable 03/13/25 21:00 Glucose 101 mg/dL (65-115) 03/13/25 21:00 Calculated Osmolality 286 mOsm/kg (285-295) 03/13/25 21:00 Calcium 9.7 mg/dL (8.5-10.5) 03/13/25 21:00 Total Bilirubin 0.3 mg/dL (0.15-1.2) 03/13/25 21:00 AST 13 U/L (0-40) 03/13/25 21:00 ALT 11 U/L (0-41) 03/13/25 21:00 Alkaline Phosphatase 75 U/L (40-130) 03/13/25 21:00 Total Protein 7.2 g/dL (6.6-8.7) 03/13/25 21:00 Albumin 4.4 g/dL (3.5-5.2) 03/13/25 21:00 Globulin 2.8 g/dL (1.3-4.6) 03/13/25 21:00 All radiology interpretation(s) finalized by discharge EKG Data EKG 1: I personally reviewed and interpreted this EKG as follows: EKG interpretation date: 03/13/25 EKG interpretation time: 20:36 Interpretation: nsr hr [address] elevation qrs 110 qtc 418 Discharge Plan Discharge Patient Disposition: Home Clinical Impression: Syncope Condition: Stable Prescriptions: No Action amlodipine 10 mg tablet 10 mg PO QAM lisinopril 10 mg tablet 10 mg PO BEDTIME lovastatin 10 mg tablet 10 mg PO BEDTIME escitalopram oxalate 10 mg tablet 10 mg PO QAM aspirin [Adult Aspirin Regimen] 81 mg tablet,delayed release (DR/EC) 81 mg PO QAM cilostazol 50 mg tablet 50 mg PO BID Qty: 180 3RF Discharge Orders: Discharge ED (Routine); Ordered 03/13/25 Ordered By: Michael Quintana Referrals: Raymundo Perez MD [Primary Care Provider] - 4-7 days Discharge Diet: Advance as tolerated Discharge Activity: Resume usual activity Patient Instructions: Syncope (ED) Print Language: Lao Coding Level of Care Code ED Stove Tender for Shereen Nassar
[2025-03-13] MEDS: sodium chloride 0.9% 1,000 ML 999 ML IV (21:01)
[2025-03-13 21:08] LABS: Basophils # 0.1 10^3/uL (0.0-0.1); Basophils % 0.5 %; Eosinophils # 0.1 10^3/uL (0.0-0.8); Eosinophils % 1.1 %; Hematocrit 37.1 % (37-53); Lymphocytes % 9.3 %; Mean Corpuscular HGB Conc 32.3 g/dL (30-55); Mean Corpuscular Hemoglobin 27.7 pg (27-33); Mean Corpuscular Volume 85.7 fl (82-101); Mean Platelet Volume 9.8 fL (7.4-10.4); Monocytes % 8.8 %; Neutrophils # 8.84 10^3/uL (1.8-7.7); Nucleated Red Blood Cells % 0 %; Platelet Count 305 10^3/cmm (157-399); Red Blood Count 4.33 10^6/uL (3.85-5.65); White Blood Count 11.04 10^3/uL (3.29-11.43)
[2025-03-13 21:23] LABS: Alanine Aminotransferase 11 U/L (0-41); Albumin Level 4.4 g/dL (3.5-5.2); Alkaline Phosphatase 75 U/L (40-130); Anion Gap 17.2 (5-19); Aspartate Amino Transferase 13 U/L (0-40); Blood Urea Nitrogen 11 mg/dL (8-23); Calcium 9.7 mg/dL (8.5-10.5); Carbon Dioxide 26 mmol/L (22-29); Chloride 99 mmol/L (98-107); Creatinine Clr Calc Pharmacy 82.1174; Globulin 2.8 g/dL (1.3-4.6); Glucose 101 mg/dL (65-115); Osmolality Calculated 286 mOsm/kg (285-295); Potassium 4.2 mmol/L (3.5-5.1); Sodium 138 mmol/L (136-145); Total Bilirubin 0.3 mg/dL (0.15-1.2); Total Protein 7.2 g/dL (6.6-8.7)
--- NOTE | 2025-03-13 21:52 | XRR_ITS ---
PROCEDURE INFORMATION: Exam: XR Chest Exam date and time: 03/13/2025 10:04 PM Age: 75 years old Clinical indication: Other: Syncope TECHNIQUE: Imaging protocol: Radiologic exam of the chest. Views: 1 view. COMPARISON: No relevant prior studies available. FINDINGS: Lungs: Nonspecific prominence of the pulmonary interstitium bilaterally. Subtle patchy opacities in the right lung base may represent some infiltrates. Pleural spaces: Unremarkable. No pleural effusion. No pneumothorax. Heart/Mediastinum: Unremarkable. No cardiomegaly. Bones/joints: Unremarkable. XR/XR chest 1V portable [id number] IMPRESSION: As above.
[2025-03-13 21:59] VITALS: BP 136/70; PULSE 70; RESP 16; O2SAT 98
[2025-03-13 22:11] VITALS: BP 137/72; BP 150/69; BP 154/71; PULSE 67; PULSE 70; PULSE 72
[2025-03-13 22:38] VITALS: BP 145/69; PULSE 83; RESP 16; O2SAT 99
== END 2025-03-13 22:38 | disposition home or self-care (01) ==
PROVIDERS: Emergency Provider Emergency Medicine; PCP Family Medicine
DX: R55 Syncope and collapse (principal); Z79.82 Long term (current) use of aspirin; F17.210 Nicotine dependence, cigarettes, uncomplicated; I10 Essential (primary) hypertension; E78.5 Hyperlipidemia, unspecified; Z85.828 Personal history of other malignant neoplasm of skin
CPT/HCPCS: 70450; 71045; 80053; 85025; 93005; 99285; J7030